=== PATIENT | male | born 1945 | race Hispanic/Latino ===

== ENCOUNTER 2017-08-28 10:43 | Inpatient (IN) | payer OTHER ==
[2017-08-28] VITALS (8 sets, daily range): BP systolic 90–101; BP diastolic 55–59
[~2017-08-28] VITALS: Ht 172.7 cm; Wt 62.3 kg
[2017-08-28 11:16] LABS: BASOPHILS % (AUTO) 0.3 % (0.0-5.0); EOSINOPHILS % (AUTO) 0.1 % (0.0-8.0); HEMATOCRIT 42.5 % (42-54); LYMPHOCYTES % (AUTO) 9.2 % (21.0-51.0); MEAN CORPUSCULAR HEMOGLOBIN 31.9 pg (27.0-33.0); MEAN CORPUSCULAR HGB CONC 33.4 g/dL (32.0-36.0); MEAN CORPUSCULAR VOLUME 95.8 fL (79-99); MONOCYTES % (AUTO) 7.9 % (3.0-13.0); NEUTROPHILS % (AUTO) 82.5 % (40.0-77.0); PLATELET COUNT (AUTO) 496 K/uL (130-400); RED BLOOD CELL COUNT(AUTO) 4.44 MIL/uL (4.50-6.20); RED CELL DISTRIBUTION WIDTH 13.2 % (11.0-15.5); WHITE BLOOD COUNT (AUTO) 17.5 K/uL (4.8-10.8)
[2017-08-28 11:23] LABS: CARBON DIOXIDE 25 mmol/L (21-32); CHLORIDE 101 mmol/L (101-111); CREATININE 1.3 mg/dL (0.5-1.5); GLOMERULAR FILTR. RATE CALC 58 mL/min (>60); GLUCOSE,RANDOM 169 mg/dL (70-105); POTASSIUM 3.7 mmol/L (3.5-5.1); SODIUM SERUM 135 mmol/L (136-145); UREA NITROGEN, BLOOD 17 mg/dL (7-18)
[2017-08-28 11:39] LABS: ALANINE AMINOTRANSFERASE 88 U/L (12-78); ALBUMIN 2.5 g/dL (3.5-5.0); ASPARTATE AMINOTRANSFERASE 51 U/L (10-37); BILIRUBIN,TOTAL 0.9 mg/dL (0.2-1.0); CREATINE KINASE MB < 0.5 ng/mL (0.5-3.6); CREATINE KINASE, TOTAL 40 U/L (21-232)
[2017-08-28] MEDS ORDERED: ENOXAPARIN SODIUM 100 MG/1 ML SQ ONE (14:17)
[2017-08-28] MEDS ORDERED: ASPIRIN 325 MG TABLET ONE (14:18)
[2017-08-28] MEDS ORDERED: NITROGLYCERIN 5 MG/ML 10 ML VIAL IV ONE (14:46)
[2017-08-28] MEDS ORDERED: HEPARIN SODIUM 1000UNIT/ML 10ML VIAL ONE (14:46)
[2017-08-28] MEDS ORDERED: ISOVUE-370 50ML VIAL IV ONE (14:46)
[2017-08-28] MEDS ORDERED: BIVALIRUDIN 250 MG/VIAL IV ONE (14:46)
[2017-08-28] MEDS ORDERED: ATROPINE SULFATE 0.1 MG/ML 10 ML SYG IVP ONE (14:46)
[2017-08-28] MEDS ORDERED: MIDAZOLAM HCL 1 MG/ML 2ML VIAL ONE (14:46)
[2017-08-28] MEDS ORDERED: IOPAMIDOL-370 100 ML VIAL IV ONE (14:46)
[2017-08-28] MEDS ORDERED: LIDOCAINE HCL 2% 20ML ONE (14:47)
[2017-08-28] MEDS ORDERED: DOPAMINE HCL 400 MG/D5%-WATER 0 ML IV ONE (14:47)
[2017-08-28] MEDS ORDERED: FENTANYL CITRATE PF 50 MCG/1 ML 2ML VIAL ONE (15:08)
[2017-08-28] MEDS ORDERED: METOPROLOL TARTRATE 1 MG/ML 5ML VIAL IV ONE (15:10)
[2017-08-28] MEDS ORDERED: CLOPIDOGREL BISULFATE 300 MG TAB ONE (16:07)
[2017-08-28] MEDS ORDERED: KETOROLAC TROMETHAMINE 30MG/ML ONE (16:38)
[2017-08-28] MEDS ORDERED: METOPROLOL TARTRATE 25 MG TAB PO SCH (16:45)
[2017-08-28] MEDS ORDERED: ATOR40TA71 PO (17:53)
[2017-08-28] MEDS ORDERED: ASPI-555 PO (17:53)
[2017-08-28] MEDS ORDERED: MORPHINE SULFATE 2 MG/ML 1ML SYG IVP ONE (18:00)
[2017-08-28] MEDS ORDERED: CEFEPIME 1GM+NS 50ML 50 ML IV SCH (18:15)
[2017-08-28] MEDS: LEVOFLOXACIN 500 MG/D5W 100 ML 100 ML IV SCH (18:53)
[2017-08-28] MEDS: METOPROLOL TARTRATE 25 MG TAB PO SCH (21:00)
[2017-08-28] MEDS: ATORVASTATIN CALCIUM 20 MG TABLET PO SCH (21:57)
[2017-08-28] MEDS: OSELTAMIVIR PHOSPHATE 75 MG CAP PO SCH (21:57)
[2017-08-28] MEDS: CEFEPIME HCL 1 GM VIAL IVP SCH (21:58)
[2017-08-29 03:45] VITALS: BP 103/54
[2017-08-29] MEDS: ACETAMINOPHEN 325 MG TAB PO PRN ×2 (04:03→16:45)
[2017-08-29 04:41] LABS: BASOPHILS % (AUTO) 0.2 % (0.0-5.0); EOSINOPHILS % (AUTO) 0.1 % (0.0-8.0); HEMATOCRIT 35.9 % (42-54); LYMPHOCYTES % (AUTO) 16.1 % (21.0-51.0); MEAN CORPUSCULAR HEMOGLOBIN 32.9 pg (27.0-33.0); MEAN CORPUSCULAR HGB CONC 34.4 g/dL (32.0-36.0); MEAN CORPUSCULAR VOLUME 95.5 fL (79-99); MONOCYTES % (AUTO) 11.7 % (3.0-13.0); NEUTROPHILS % (AUTO) 71.9 % (40.0-77.0); PLATELET COUNT (AUTO) 489 K/uL (130-400); RED BLOOD CELL COUNT(AUTO) 3.76 MIL/uL (4.50-6.20); RED CELL DISTRIBUTION WIDTH 13.5 % (11.0-15.5); WHITE BLOOD COUNT (AUTO) 13.2 K/uL (4.8-10.8)
[2017-08-29] MEDS: CEFEPIME HCL 1 GM VIAL IVP SCH ×3 (04:53→20:32)
[2017-08-29 05:00] LABS: ALANINE AMINOTRANSFERASE 78 U/L (12-78); ASPARTATE AMINOTRANSFERASE 46 U/L (10-37); BILIRUBIN,DIRECT 0.2 mg/dL (0.0-0.3); BILIRUBIN,TOTAL 0.6 mg/dL (0.2-1.0); CARBON DIOXIDE 26 mmol/L (21-32); CHLORIDE 100 mmol/L (101-111); CREATINE KINASE MB < 0.5 ng/mL (0.5-3.6); CREATINE KINASE, TOTAL 25 U/L (21-232); CREATININE 1.1 mg/dL (0.5-1.5); GLOMERULAR FILTR. RATE CALC 70 mL/min (>60); GLUCOSE,RANDOM 108 mg/dL (70-105); MYOGLOBIN 37 ng/mL (10-92); POTASSIUM 3.9 mmol/L (3.5-5.1); SODIUM SERUM 134 mmol/L (136-145); TOTAL PROTEIN, SERUM 6.7 g/dL (6.0-8.3); TROPONIN I 0.35 ng/mL (0.00-0.06); UREA NITROGEN, BLOOD 16 mg/dL (7-18)
[2017-08-29 05:35] LABS: ERYTHROCYTE SEDIMENTATION RATE 85 MM/HR (0-15)
[2017-08-29 05:54] LABS: B-TYPE NATRIURETIC PEPTIDE 152 pg/mL (0-100)
[2017-08-29 07:38] VITALS: BP 88/49
[2017-08-29] MEDS: METOPROLOL TARTRATE 25 MG TAB PO SCH ×2 (08:50→20:40)
[2017-08-29] MEDS: CLOPIDOGREL BISULFATE 75 MG TAB PO SCH (08:50)
[2017-08-29] MEDS: ASPIRIN 81MG TAB.CHEW PO SCH (08:50)
[2017-08-29] MEDS: ENOXAPARIN SODIUM 40 MG/0.4 ML SYRINGE SQ SCH (08:51)
[2017-08-29] MEDS: OSELTAMIVIR PHOSPHATE 75 MG CAP PO SCH ×2 (08:51→20:33)
[2017-08-29 10:59] VITALS: BP 105/60
[2017-08-29 16:00] VITALS: BP 106/67
[2017-08-29] MEDS: LEVOFLOXACIN 500 MG/D5W 100 ML 100 ML IV SCH (18:11)
[2017-08-29 19:27] VITALS: BP 105/58
[2017-08-29] MEDS: COLCHICINE 0.6 MG TABLET PO SCH (20:33)
[2017-08-29] MEDS: ATORVASTATIN CALCIUM 20 MG TABLET PO SCH (20:33)
[2017-08-30 00:16] VITALS: BP 110/57
[2017-08-30] MEDS: ACETAMINOPHEN 325 MG TAB PO PRN ×2 (02:21→19:52)
[2017-08-30 04:00] VITALS: BP 101/62
[2017-08-30] MEDS: CEFEPIME HCL 1 GM VIAL IVP SCH ×3 (04:23→19:50)
[2017-08-30 04:35] LABS: HEMATOCRIT 36.2 % (42-54); MEAN CORPUSCULAR HEMOGLOBIN 32.6 pg (27.0-33.0); MEAN CORPUSCULAR HGB CONC 34.2 g/dL (32.0-36.0); MEAN CORPUSCULAR VOLUME 95.3 fL (79-99); PLATELET COUNT (AUTO) 558 K/uL (130-400); RED BLOOD CELL COUNT(AUTO) 3.79 MIL/uL (4.50-6.20); RED CELL DISTRIBUTION WIDTH 13.1 % (11.0-15.5); WHITE BLOOD COUNT (AUTO) 15.1 K/uL (4.8-10.8)
[2017-08-30 04:52] LABS: CREATININE 1.2 mg/dL (0.5-1.5); POTASSIUM 3.5 mmol/L (3.5-5.1)
[2017-08-30 04:58] LABS: BAND NEUTROPHILS % (MANUAL) 4 % (0-2); BASOPHILS % (MANUAL) 1 % (0-2); LYMPHOCYTES % (MANUAL) 10 % (22-44); MAN.DIFF COMMENT-IMPRESSION MANUAL DIFFERENTIAL; MONOCYTES % (MANUAL) 10 % (2-9); PLATELET MORPHOLOGY COMMENT INCREASED; SEGMENTED NEUTROPHILS % 75 % (40-70)
[2017-08-30 07:33] VITALS: BP 102/61
[2017-08-30] MEDS: OSELTAMIVIR PHOSPHATE 75 MG CAP PO SCH ×2 (09:28→19:50)
[2017-08-30] MEDS: ASPIRIN 81MG TAB.CHEW PO SCH (09:28)
[2017-08-30] MEDS: METOPROLOL TARTRATE 25 MG TAB PO SCH ×2 (09:28→19:51)
[2017-08-30] MEDS: COLCHICINE 0.6 MG TABLET PO SCH ×2 (09:28→19:50)
[2017-08-30] MEDS: CLOPIDOGREL BISULFATE 75 MG TAB PO SCH (09:28)
[2017-08-30] MEDS: TRAMADOL HCL 50 MG TABLET PO SCH (09:29)
[2017-08-30] MEDS: PANTOPRAZOLE SODIUM 40 MG TABLET.DR PO SCH (09:29)
[2017-08-30] MEDS: ENOXAPARIN SODIUM 40 MG/0.4 ML SYRINGE SQ SCH (09:30)
[2017-08-30 11:04] VITALS: BP 105/64
[2017-08-30 16:04] VITALS: BP 109/65
[2017-08-30] MEDS: LEVOFLOXACIN 500 MG/D5W 100 ML 100 ML IV SCH (18:31)
[2017-08-30 19:40] VITALS: BP 118/50
[2017-08-30] MEDS: ATORVASTATIN CALCIUM 20 MG TABLET PO SCH (19:50)
[2017-08-31] VITALS (7 sets, daily range): BP systolic 95–120; BP diastolic 53–69
[2017-08-31] MEDS: CEFEPIME HCL 1 GM VIAL IVP SCH ×3 (04:14→20:22)
[2017-08-31 04:31] LABS: HEMATOCRIT 37.4 % (42-54); MEAN CORPUSCULAR HEMOGLOBIN 33.4 pg (27.0-33.0); MEAN CORPUSCULAR HGB CONC 35.1 g/dL (32.0-36.0); MEAN CORPUSCULAR VOLUME 95.1 fL (79-99); PLATELET COUNT (AUTO) 532 K/uL (130-400); RED BLOOD CELL COUNT(AUTO) 3.93 MIL/uL (4.50-6.20); RED CELL DISTRIBUTION WIDTH 13.1 % (11.0-15.5); WHITE BLOOD COUNT (AUTO) 14.4 K/uL (4.8-10.8)
[2017-08-31 04:48] LABS: BILIRUBIN,TOTAL 0.5 mg/dL (0.2-1.0); CREATININE 1.2 mg/dL (0.5-1.5); MAGNESIUM 2.2 mg/dL (1.80-2.40); POTASSIUM 4.2 mmol/L (3.5-5.1); TOTAL PROTEIN, SERUM 7.1 g/dL (6.0-8.3)
[2017-08-31] MEDS: TRAMADOL HCL 50 MG TABLET PO SCH (08:00)
[2017-08-31] MEDS: ASPIRIN 81MG TAB.CHEW PO SCH (10:14)
[2017-08-31] MEDS: CLOPIDOGREL BISULFATE 75 MG TAB PO SCH (10:14)
[2017-08-31] MEDS: OSELTAMIVIR PHOSPHATE 75 MG CAP PO SCH ×2 (10:14→20:20)
[2017-08-31] MEDS: COLCHICINE 0.6 MG TABLET PO SCH ×2 (10:15→20:20)
[2017-08-31] MEDS: PANTOPRAZOLE SODIUM 40 MG TABLET.DR PO SCH (10:16)
[2017-08-31] MEDS: METOPROLOL TARTRATE 25 MG TAB PO SCH ×2 (10:16→20:20)
[2017-08-31] MEDS: ENOXAPARIN SODIUM 40 MG/0.4 ML SYRINGE SQ SCH (10:18)
[2017-08-31] MEDS: ACETAMINOPHEN 325 MG TAB PO PRN (10:28)
[2017-08-31] MEDS ORDERED: TRAMADOL HCL 50 MG TABLET PO PRN (17:30)
[2017-08-31] MEDS: LEVOFLOXACIN 500 MG/D5W 100 ML 100 ML IV SCH (19:21)
[2017-08-31] MEDS: ATORVASTATIN CALCIUM 40 MG TABLET PO SCH (20:20)
[2017-09-01] MEDS: CEFEPIME HCL 1 GM VIAL IVP SCH ×3 (03:06→19:50)
[2017-09-01 03:53] VITALS: BP 115/65
[2017-09-01 07:00] VITALS: BP 104/61
[2017-09-01] MEDS: COLCHICINE 0.6 MG TABLET PO SCH ×2 (08:33→19:50)
[2017-09-01] MEDS: CLOPIDOGREL BISULFATE 75 MG TAB PO SCH (08:34)
[2017-09-01] MEDS: ASPIRIN 81MG TAB.CHEW PO SCH (08:34)
[2017-09-01] MEDS: PANTOPRAZOLE SODIUM 40 MG TABLET.DR PO SCH (08:34)
[2017-09-01] MEDS: METOPROLOL TARTRATE 25 MG TAB PO SCH ×2 (08:34→19:52)
[2017-09-01] MEDS: OSELTAMIVIR PHOSPHATE 75 MG CAP PO SCH ×2 (08:34→19:52)
[2017-09-01] MEDS: ENOXAPARIN SODIUM 40 MG/0.4 ML SYRINGE SQ SCH (08:37)
[2017-09-01] MEDS ORDERED: GADOBENATE DIMEGLUMINE 20 ML IV ONE (10:59)
[2017-09-01 11:00] VITALS: BP 111/67
[2017-09-01] MEDS: NICOTINE 14 MG/ 24 HR PATCH TD SCH (12:00)
[2017-09-01] MEDS: FOLIC ACID 1 MG TABLET PO SCH (12:27)
[2017-09-01] MEDS: THIAMINE HCL 100 MG TABLET PO SCH (12:27)
[2017-09-01 16:00] VITALS: BP 102/63
[2017-09-01] MEDS: LEVOFLOXACIN 500 MG/D5W 100 ML 100 ML IV SCH (18:40)
[2017-09-01 19:30] VITALS: BP 108/63
[2017-09-01] MEDS: ATORVASTATIN CALCIUM 40 MG TABLET PO SCH (19:52)
[2017-09-01] MEDS ORDERED: ALPRAZOLAM 0.5 MG TABLET PO SCH (21:00)
[2017-09-01 23:39] VITALS: BP 106/67
[2017-09-02] MEDS: CEFEPIME HCL 1 GM VIAL IVP SCH ×2 (03:13→13:14)
[2017-09-02 03:37] VITALS: BP 98/60
[2017-09-02 05:00] LABS: HEMATOCRIT 37.5 % (42-54); MEAN CORPUSCULAR HEMOGLOBIN 32.2 pg (27.0-33.0); MEAN CORPUSCULAR HGB CONC 33.8 g/dL (32.0-36.0); MEAN CORPUSCULAR VOLUME 95.2 fL (79-99); PLATELET COUNT (AUTO) 570 K/uL (130-400); RED BLOOD CELL COUNT(AUTO) 3.94 MIL/uL (4.50-6.20); RED CELL DISTRIBUTION WIDTH 13.2 % (11.0-15.5); WHITE BLOOD COUNT (AUTO) 12.9 K/uL (4.8-10.8)
[2017-09-02 05:11] LABS: CREATININE 1.2 mg/dL (0.5-1.5); MAGNESIUM 2.1 mg/dL (1.80-2.40); POTASSIUM 3.6 mmol/L (3.5-5.1)
[2017-09-02 07:00] VITALS: BP 105/63
[2017-09-02] MEDS ORDERED: COLC0.6C3 PO (08:45)
[2017-09-02] MEDS ORDERED: ATOR40TA69 PO (08:45)
[2017-09-02] MEDS ORDERED: METO25TA6 PO (08:45)
[2017-09-02] MEDS ORDERED: CLOP75TA14 PO (08:45)
[2017-09-02] MEDS ORDERED: OSEL75 PO (08:45)
[2017-09-02] MEDS ORDERED: AEC81 PO (08:45)
[2017-09-02] MEDS: COLCHICINE 0.6 MG TABLET PO SCH (08:55)
[2017-09-02] MEDS: CLOPIDOGREL BISULFATE 75 MG TAB PO SCH (08:56)
[2017-09-02] MEDS: ASPIRIN 81MG TAB.CHEW PO SCH (08:56)
[2017-09-02] MEDS: PANTOPRAZOLE SODIUM 40 MG TABLET.DR PO SCH (08:56)
[2017-09-02] MEDS: THIAMINE HCL 100 MG TABLET PO SCH (08:56)
[2017-09-02] MEDS: FOLIC ACID 1 MG TABLET PO SCH (08:56)
[2017-09-02] MEDS: METOPROLOL TARTRATE 25 MG TAB PO SCH (08:56)
[2017-09-02] MEDS: OSELTAMIVIR PHOSPHATE 75 MG CAP PO SCH (08:56)
[2017-09-02] MEDS: NICOTINE 14 MG/ 24 HR PATCH TD SCH (08:57)
[2017-09-02] MEDS: ENOXAPARIN SODIUM 40 MG/0.4 ML SYRINGE SQ SCH (09:02)
[2017-09-02 11:00] VITALS: BP 102/64
== END 2017-09-02 15:30 | disposition home or self-care (01) | DRG 853 ==
LOC: EDH 10:43 → OBSVTOIN 13:59 → EDHIP 13:59 → 2DH 17:12
PROVIDERS: ADMIT Internal Medicine Infectious Disease; ATTEND Internal Medicine Infectious Disease
PROC: 4A023N7 Measurement of Cardiac Sampling and Pressure, Left Heart, Percutaneous Approach (ICD-10-PCS; principal; 2017-08-28)
PROC: B2111ZZ Fluoroscopy of Multiple Coronary Arteries using Low Osmolar Contrast (ICD-10-PCS; 2017-08-28)
PROC: B2151ZZ Fluoroscopy of Left Heart using Low Osmolar Contrast (ICD-10-PCS; 2017-08-28)
PROC: 027034Z Dilation of Coronary Artery, One Artery with Drug-eluting Intraluminal Device, Percutaneous Approach (ICD-10-PCS; 2017-08-28)
DX: A41.9 Sepsis, unspecified organism (principal); I21.09 ST elevation (STEMI) myocardial infarction involving other coronary artery of anterior wall; I50.21 Acute systolic (congestive) heart failure; I95.9 Hypotension, unspecified; I11.0 Hypertensive heart disease with heart failure; J11.1 Influenza due to unidentified influenza virus with other respiratory manifestations; M25.512 Pain in left shoulder; E78.5 Hyperlipidemia, unspecified; I25.10 Atherosclerotic heart disease of native coronary artery without angina pectoris; F17.200 Nicotine dependence, unspecified, uncomplicated; M75.102 Unspecified rotator cuff tear or rupture of left shoulder, not specified as traumatic; Z28.21 Immunization not carried out because of patient refusal; Z82.49 Family history of ischemic heart disease and other diseases of the circulatory system
CPT/HCPCS: 36415; 71046; 71250; 73223; 80048; 80053; 80076; 82550; 82553; 83735; 83874; 83880; 84484; 85025; 85027; 85651; 87040; 87804; 93005; 93306; 93458; 99152; 99153; A4218; A9577; C1725; C1760; C1769; C1887; C1894; C9600; J0461; J0583; J0692; J1265; J1644; J1650; J1885; J1956; J2250; J3010; J3490; Q9967

== ENCOUNTER 2021-10-18 08:52 | Observation (INO) | payer OTHER ==
[~2021-10-18] VITALS: Ht 172.7 cm; Wt 70.3 kg
[2021-10-18] VITALS (12 sets, daily range): BP systolic 104–134; BP diastolic 53–79
[~2021-10-18 08:52] MED LIST: ACET325C6 PO; AEC81 PO; ATOR20TA65 PO; CLOP75TA32 PO; METO25TA6 PO; SACU1TAB PO
[2021-10-18 09:36] LABS: BASOPHILS % (AUTO) 0.3 % (0.0-5.0); EOSINOPHILS % (AUTO) 3.7 % (0.0-8.0); HEMATOCRIT 35.4 % (42-54); LYMPHOCYTES % (AUTO) 28.6 % (21.0-51.0); MEAN CORPUSCULAR HEMOGLOBIN 29.9 pg (27.0-33.0); MEAN CORPUSCULAR HGB CONC 32.5 g/dL (32.0-36.0); MEAN CORPUSCULAR VOLUME 91.9 fL (79-99); MONOCYTES % (AUTO) 13.3 % (3.0-13.0); NEUTROPHILS % (AUTO) 53.8 % (40.0-77.0); PLATELET COUNT (AUTO) 191 K/uL (130-400); RED BLOOD CELL COUNT(AUTO) 3.85 MIL/uL (4.50-6.20); RED CELL DISTRIBUTION WIDTH 14.4 % (11.0-15.5); WHITE BLOOD COUNT (AUTO) 7.5 K/uL (4.8-10.8)
[2021-10-18 09:44] LABS: POTASSIUM 3.8 mmol/L (3.5-5.1)
[2021-10-18 09:46] LABS: INR 0.95 (0.85-1.15); PROTHROMBIN TIME 10.4 SEC (9.6-11.6)
[2021-10-18 09:47] LABS: PARTIAL THROMBOPLASTIN TIME 28.4 SEC (26.3-35.5)
[2021-10-18] MEDS ORDERED: ACETAMINOPHEN 325 MG TAB PO PRN ×2 (12:30→15:00)
[2021-10-18] MEDS ORDERED: FURO40TA5 PO (18:34)
[2021-10-18] MEDS ORDERED: RIVA20TA PO (18:34)
[2021-10-18] MEDS ORDERED: ROSU10TA28 PO (18:34)
[2021-10-18] MEDS ORDERED: ICOS1CAP PO (18:34)
[2021-10-18] MEDS ORDERED: CAND8TAB14 PO (18:34)
[2021-10-18] MEDS: METOPROLOL TARTRATE 25 MG TAB PO SCH (20:39)
[2021-10-18] MEDS: Icosapent Ethyl (Vascepa) 2 GM PO SCH (21:00)
[2021-10-19 03:16] VITALS: BP 116/60
[2021-10-19 05:24] LABS: BASOPHILS % (AUTO) 0.4 % (0.0-5.0); EOSINOPHILS % (AUTO) 3.9 % (0.0-8.0); HEMATOCRIT 32.4 % (42-54); LYMPHOCYTES % (AUTO) 36.8 % (21.0-51.0); MEAN CORPUSCULAR HEMOGLOBIN 30.3 pg (27.0-33.0); MEAN CORPUSCULAR HGB CONC 32.4 g/dL (32.0-36.0); MEAN CORPUSCULAR VOLUME 93.4 fL (79-99); MONOCYTES % (AUTO) 15.8 % (3.0-13.0); NEUTROPHILS % (AUTO) 42.8 % (40.0-77.0); PLATELET COUNT (AUTO) 182 K/uL (130-400); RED BLOOD CELL COUNT(AUTO) 3.47 MIL/uL (4.50-6.20); RED CELL DISTRIBUTION WIDTH 14.4 % (11.0-15.5); WHITE BLOOD COUNT (AUTO) 7.4 K/uL (4.8-10.8)
[2021-10-19 05:34] LABS: CREATININE 1.8 mg/dL (0.5-1.5); POTASSIUM 3.8 mmol/L (3.5-5.1)
[2021-10-19] MEDS: METOPROLOL TARTRATE 25 MG TAB PO SCH (05:55)
[2021-10-19 08:01] VITALS: BP 117/65
[2021-10-19] MEDS ORDERED: CANDESARTAN CILEXETIL 8 MG PO SCH (09:00)
[2021-10-19] MEDS ORDERED: Rosuvastatin Calcium 10 MG PO SCH (09:00)
[2021-10-19] MEDS: Icosapent Ethyl (Vascepa) 2 GM PO SCH (09:00)
[2021-10-19] MEDS ORDERED: FUROSEMIDE 40 MG TABLET PO SCH (09:00)
[2021-10-19 14:07] VITALS: BP 138/58
== END 2021-10-19 18:00 | disposition home or self-care (01) ==
LOC: DAH 08:52 → 3DH 08:53 → DAH 08:53 → EDSTATUS 10:00
PROVIDERS: ADMIT Internal Medicine Nephrology; ATTEND Internal Medicine Nephrology
DX: R80.9 Proteinuria, unspecified (principal); I12.9 Hypertensive chronic kidney disease with stage 1 through stage 4 chronic kidney disease, or unspecified chronic kidney disease; N18.9 Chronic kidney disease, unspecified; E78.5 Hyperlipidemia, unspecified; I25.5 Ischemic cardiomyopathy; K21.9 Gastro-esophageal reflux disease without esophagitis; I25.10 Atherosclerotic heart disease of native coronary artery without angina pectoris; M19.90 Unspecified osteoarthritis, unspecified site; Z95.5 Presence of coronary angioplasty implant and graft; Z79.01 Long term (current) use of anticoagulants; Z79.899 Other long term (current) drug therapy
CPT/HCPCS: 36415 ×2; 50200; 76942; 80048 ×2; 85025 ×2; 85610; 85730; G0378 ×33; G0379

== ENCOUNTER 2022-04-18 08:18 | Observation (INO) | payer OTHER ==
[~2022-04-18] VITALS: Ht 170.2 cm; Wt 72.1 kg
[~2022-04-18 08:18] MED LIST changes: -ACET325C6 PO; -ATOR20TA65 PO; +CAND8TAB14 PO; -CLOP75TA32 PO; +FURO40TA5 PO; +ICOS1CAP PO; +RIVA20TA PO; +ROSU10TA28 PO; -SACU1TAB PO
[2022-04-18 08:49] LABS: BASOPHILS % (AUTO) 0.2 % (0.0-5.0); EOSINOPHILS % (AUTO) 1.8 % (0.0-8.0); HEMATOCRIT 37.5 % (42-54); MEAN CORPUSCULAR HGB CONC 33.9 g/dL (32.0-36.0); MEAN CORPUSCULAR VOLUME 91.5 fL (79-99); NEUTROPHILS % (AUTO) 69.3 % (40.0-77.0); PLATELET COUNT (AUTO) 180 K/uL (130-400); RED CELL DISTRIBUTION WIDTH 15.1 % (11.0-15.5); WHITE BLOOD COUNT (AUTO) 11.4 K/uL (4.8-10.8)
[2022-04-18 08:58] LABS: CREATININE 1.8 mg/dL (0.5-1.5); POTASSIUM 3.6 mmol/L (3.5-5.1)
[2022-04-18 08:59] LABS: INR 0.93 (0.85-1.15); PROTHROMBIN TIME 10.2 SEC (9.6-11.6)
[2022-04-18] MEDS ORDERED: 0.9%NACL 1000ML 1,000 ML IV ONE (09:00)
[2022-04-18 09:01] LABS: PARTIAL THROMBOPLASTIN TIME 25.6 SEC (26.3-35.5)
[2022-04-18 09:02] LABS: ALBUMIN 1.8 g/dL (3.5-5.0)
[2022-04-18] MEDS ORDERED: IOHEXOL 350 MG/ML 100ML INFUS..BTL IV ONE (09:25)
[2022-04-18] MEDS ORDERED: ASPIRIN 81MG CHEW TAB PO ONE (10:30)
[2022-04-18] MEDS ORDERED: 0.9%NACL 1000ML 1,000 ML IV SCH ×2 (11:00→16:30)
[2022-04-18] MEDS ORDERED: ASPIRIN 325MG TAB PO SCH (11:00)
[2022-04-18] MEDS ORDERED: FAMO20TA8 PO (11:05)
[2022-04-18] MEDS ORDERED: FERR-72 PO (11:05)
[2022-04-18] MEDS ORDERED: LEVO25CA4 PO (11:05)
[2022-04-18] MEDS ORDERED: RIVA20TA PO (11:05)
[2022-04-18] MEDS ORDERED: CAND16TA28 PO (11:05)
[2022-04-18] MEDS ORDERED: METO25TA6 PO (11:05)
[2022-04-18] MEDS ORDERED: ROSU10TA28 PO (11:05)
[2022-04-18] MEDS ORDERED: PRED20TA3 PO (11:05)
[2022-04-18] MEDS ORDERED: TAMS-1 PO (11:05)
[2022-04-18] MEDS ORDERED: FURO40TA5 PO (11:05)
[2022-04-18] MEDS ORDERED: CAND8TAB14 PO (11:13)
[2022-04-18 16:00] VITALS: BP_SYST 121; BP_SYST 132; BP_DIAS 62; BP_DIAS 74
[2022-04-18] MEDS ORDERED: LACTULOSE 20 GM/30 ML UDCUP PO PRN (16:30)
[2022-04-18] MEDS ORDERED: ACETAMINOPHEN 325 MG TAB PO PRN ×2 (16:30)
[2022-04-18] MEDS ORDERED: ONDANSETRON 4MG INJ IV PRN (16:30)
[2022-04-18] MEDS ORDERED: DiphenhydrAMINE HCL 50 MG/ML VIAL IV PRN (16:30)
[2022-04-18] MEDS ORDERED: MAG/ALUM/SIMETH 30 ML UDCUP PO PRN (16:30)
[2022-04-18] MEDS ORDERED: POTASSIUM CHLORIDE 20MEQ/100ML 100 ML IV PRN (17:00)
[2022-04-18] MEDS ORDERED: KCL 20 MEQ ERTAB PO PRN (17:00)
[2022-04-18] MEDS ORDERED: POTASSIUM CHLORIDE 10% ELIXIR 20 MEQ/15 ML UDCUP PO PRN (17:00)
[2022-04-18] MEDS ORDERED: LIDOCAINE HCL-MPF 1% 2ML VIAL IV PRN (17:00)
[2022-04-18] MEDS ORDERED: DIPHENHYDRAMINE HCL 25 MG CAPSULE PO PRN (17:30)
[2022-04-18 20:20] VITALS: BP 122/66
[2022-04-18] MEDS: FISH OIL 1000 MG/CAP PO SCH (20:35)
[2022-04-18] MEDS: METOPROLOL TARTRATE 25 MG TAB PO SCH (20:35)
[2022-04-18] MEDS ORDERED: ATORVASTATIN 20 MG TABLET PO SCH (21:00)
[2022-04-18] MEDS ORDERED: NON-FORMULARY MEDICATION 1 EACH (Rosuvastatin Calcium 10 MG) PO SCH (21:00)
[2022-04-18 23:44] VITALS: BP 115/64
[2022-04-19 04:10] VITALS: BP 108/55
[2022-04-19 05:29] LABS: CREATININE 1.6 mg/dL (0.5-1.5)
[2022-04-19] MEDS ORDERED: LEVOTHYROXINE 25 MCG TABLET PO SCH (06:30)
[2022-04-19 07:49] VITALS: BP 106/53
[2022-04-19] MEDS ORDERED: TAMSULOSIN HCL 0.4 MG CAP.ER.24H PO SCH (09:00)
[2022-04-19] MEDS ORDERED: FUROSEMIDE 40 MG TABLET PO SCH (09:00)
[2022-04-19] MEDS ORDERED: FAMOTIDINE 20MG TAB PO SCH (09:00)
[2022-04-19] MEDS ORDERED: ASPIRIN 81 MG EC TAB PO SCH (09:00)
[2022-04-19] MEDS ORDERED: NON-FORMULARY MEDICATION 1 EACH (Ferrous Sulfate 325 MG) PO SCH (09:00)
[2022-04-19] MEDS ORDERED: FERROUS SULFATE 325 MG TABLET.DR PO SCH (09:00)
[2022-04-19] MEDS ORDERED: CANDESARTAN CILEXETIL 8 MG PO SCH (09:00)
[2022-04-19] MEDS ORDERED: RIVAROXABAN 20 MG TABLET PO SCH (09:00)
[2022-04-19] MEDS ORDERED: NON-FORMULARY MEDICATION 1 EACH (Levothyroxine Sodium (Levothyroxine) 25 MCG) PO SCH (09:00)
[2022-04-19] MEDS: FISH OIL 1000 MG/CAP PO SCH (09:29)
[2022-04-19] MEDS: METOPROLOL TARTRATE 25 MG TAB PO SCH (09:30)
[2022-04-19 12:18] VITALS: BP 121/69
[2022-04-19] MEDS ORDERED: CAND8TAB14 PO (13:57)
[2022-04-19 15:10] VITALS: BP 107/53
== END 2022-04-19 16:40 | disposition home or self-care (01) ==
LOC: EDH 08:18 → INTOOBSV 10:53 → EDHIP 10:53 → 3AH 12:01
PROVIDERS: ADMIT Internal Medicine; ATTEND Internal Medicine
DX: G45.9 Transient cerebral ischemic attack, unspecified (principal); I63.9 Cerebral infarction, unspecified; I13.0 Hypertensive heart and chronic kidney disease with heart failure and stage 1 through stage 4 chronic kidney disease, or unspecified chronic kidney disease; E11.22 Type 2 diabetes mellitus with diabetic chronic kidney disease; I50.9 Heart failure, unspecified; N18.4 Chronic kidney disease, stage 4 (severe); I25.10 Atherosclerotic heart disease of native coronary artery without angina pectoris; I71.6 Thoracoabdominal aortic aneurysm, without rupture; I70.0 Atherosclerosis of aorta; I48.91 Unspecified atrial fibrillation; I42.9 Cardiomyopathy, unspecified; F10.21 Alcohol dependence, in remission; D68.69 Other thrombophilia; I95.9 Hypotension, unspecified; E86.0 Dehydration; M41.9 Scoliosis, unspecified; N05.2 Unspecified nephritic syndrome with diffuse membranous glomerulonephritis; R29.701 NIHSS score 1; Z79.82 Long term (current) use of aspirin; Z79.890 Hormone replacement therapy; Z79.01 Long term (current) use of anticoagulants; Z79.899 Other long term (current) drug therapy; Z87.891 Personal history of nicotine dependence; Z86.73 Personal history of transient ischemic attack (TIA), and cerebral infarction without residual deficits; Z95.5 Presence of coronary angioplasty implant and graft
CPT/HCPCS: 96360; 96361 ×2; 84484; 80053; 85025; 85610; 85730; 82948; 36415 ×2; 71045; 70450; 70496; 70498; 93880; 99291; 97161; 97116 ×2; 92522; 92610; 93005; 80048; 93306; 97039; 92507; Q9967; G0378 ×3

== ENCOUNTER 2023-05-01 23:07 | Emergency (ER) | payer OTHER ==
[~2023-05-01] VITALS: Ht 165.1 cm; Wt 74.8 kg
[~2023-05-01 23:07] MED LIST changes: +FAMO20TA8 PO; +FERR-72 PO; +TAMS-1 PO
[2023-05-01] MEDS ORDERED: ONDANSETRON 4MG INJ ONE (23:29)
[2023-05-01 23:39] LABS: BASOPHILS # (AUTO) 0.03 K/uL (0.00-0.20); BASOPHILS % (AUTO) 0.2 % (0.0-5.0); EOSINOPHILS # (AUTO) 0.18 K/uL (0.00-0.70); EOSINOPHILS % (AUTO) 1.3 % (0.0-8.0); HEMATOCRIT 41.1 % (42-54); IMMATURE GRANULOCYTE ABSOLUTE 0.05 K/uL (0-1); LYMPHOCYTES # (AUTO) 5.7 K/uL (1.0-4.8); LYMPHOCYTES % (AUTO) 41.9 % (21.0-51.0); MEAN CORPUSCULAR HEMOGLOBIN 28.7 pg (27.0-33.0); MEAN CORPUSCULAR HGB CONC 32.8 g/dL (32.0-36.0); MEAN CORPUSCULAR VOLUME 87.3 fL (79-99); MONOCYTES # (AUTO) 1.3 K/uL (0.1-1.0); MONOCYTES % (AUTO) 9.2 % (3.0-13.0); NEUTROPHILS # (AUTO) 6.4 K/uL (1.8-7.7); PLATELET COUNT (AUTO) 266 K/uL (130-400); RED BLOOD CELL COUNT(AUTO) 4.71 MIL/uL (4.50-6.20); RED CELL DISTRIBUTION WIDTH 15.1 % (11.0-15.5); WHITE BLOOD COUNT (AUTO) 13.7 K/uL (4.8-10.8)
[2023-05-01 23:49] LABS: CREATININE 1.6 mg/dL (0.5-1.5); POTASSIUM 3.3 mmol/L (3.5-5.1)
[2023-05-01 23:51] LABS: INR 0.96 (0.85-1.15); PROTHROMBIN TIME 11.2 SEC (9.6-11.6)
[2023-05-01 23:52] LABS: PARTIAL THROMBOPLASTIN TIME 29.6 SEC (26.3-35.5)
[2023-05-01 23:55] LABS: ALBUMIN 3.4 g/dL (3.5-5.0); BILIRUBIN,TOTAL 0.3 mg/dL (0.2-1.0); MAGNESIUM 2.2 mg/dL (1.80-2.40); TOTAL PROTEIN, SERUM 7.2 g/dL (6.0-8.3)
[2023-05-02 00:09] LABS: B-TYPE NATRIURETIC PEPTIDE 100 pg/mL (0-100)
[2023-05-02 00:45] LABS: BAND NEUTROPHILS % (MANUAL) 3 % (0-2); EOSINOPHILS % (MANUAL) 2 % (1-6); LYMPHOCYTES % (MANUAL) 31 % (22-44); MAN.DIFF COMMENT-IMPRESSION MANUAL DIFFERENTIAL; MONOCYTES % (MANUAL) 14 % (2-9); PLATELET MORPHOLOGY COMMENT ADEQUATE; SEGMENTED NEUTROPHILS % 50 % (40-70); TOTAL CELLS COUNTED 100; WBC MORPHOLOGY CONSISTENT W/DIFF
[2023-05-02] MEDS ORDERED: ONDA-104 PO ×2 (03:19)
[2023-05-02 03:35] VITALS: BP 145/74; PULSE 88; RESP 18; O2SAT 99
== END 2023-05-02 03:42 | disposition home or self-care (01) ==
LOC: EDH 23:07
DX: I63.9 Cerebral infarction, unspecified (principal); I10 Essential (primary) hypertension; Z88.6 Allergy status to analgesic agent
CPT/HCPCS: 99284; 96374; 71045; 83735; 84484 ×2; 80053; 83880; 85025; 85610; 85730; 36415; 93005; 70450; J2405

== ENCOUNTER → 2024-06-02 | Outpatient (CLI) | payer OTHER ==
[~2024-06-02] MED LIST changes: +ONDA-104 PO; -ROSU10TA28 PO; +ROSU10TA72 PO
== END | disposition home or self-care (01) ==
LOC: RAH 16:19
PROVIDERS: ATTEND Internal Medicine
DX: M79.604 Pain in right leg (principal); R60.0 Localized edema
CPT/HCPCS: 73590

== ENCOUNTER 2024-06-14 14:25 | Emergency (ER) | payer OTHER ==
[~2024-06-14] VITALS: Ht 167.6 cm; Wt 76.2 kg
--- NOTE | 2024-06-14 14:56 | ERN ---
ED Note History of Present Illness Stated Complaint: FALL Chief Complaint: Lower Extremity Pain/Injury Time Seen by MD: : Dictation: 78-year-old male presents to the ED for evaluation of low right lower extremity pain onset [employer]. Patient states he had injured his right leg around the tib-fib area 2 weeks ago, he was prescribed medication he felt better but states that he went back to work and hit his right lower extremity again. Allergies: Coded Allergies: ibuprofen (Verified Allergy, Unknown, 02/16/18) naproxen (Verified Allergy, Unknown, 02/16/18) Home Meds Active Scripts Ondansetron HCl (Ondansetron HCl) 4 Mg Tablet, 4 MG PO TIDP PRN for VOMITING, #20 TAB Prov:MARIA ISABEL FLEMING MD 05/02/23 Ondansetron HCl (Ondansetron HCl) 4 Mg Tablet, 4 MG PO TIDP PRN for VOMITING, #20 TAB Prov:MARIA ISABEL FLEMING MD 05/02/23 Candesartan Cilexetil (Candesartan Cilexetil) 8 Mg Tablet, 4 MG PO DAILY, #90 TAB Prov:MARIA ISABEL FERNANDEZ MD 04/19/22 Aspirin (ASPIRIN 81 MG ECTAB) 81 Mg Ectab, 81 MG PO DAILY for 30 Days, TAB.EC Prov:FLACA LO MD 09/02/17 Reported Medications Metoprolol Tartrate (Metoprolol Tartrate) 25 Mg Tablet, 25 MG PO BID, TAB 04/18/22 Rosuvastatin Calcium (Rosuvastatin Calcium) 10 Mg Tablet, 10 MG PO HS, TAB 04/18/22 Famotidine (Famotidine) 20 Mg Tablet, 20 MG PO DAILY, TAB 04/18/22 Rivaroxaban (Xarelto) 20 Mg Tablet, 20 MG PO DAILY, TAB 04/18/22 Tamsulosin HCl (Flomax) 0.4 Mg Cap.er.24h, 0.4 MG PO DAILY, CAPSULE.DR 04/18/22 Ferrous Sulfate (Ferrous Sulfate) 325 Mg Tablet, 325 MG PO DAILY, TAB 04/18/22 Furosemide (Furosemide) 40 Mg Tablet, 20 MG PO DAILY, TAB 04/18/22 Icosapent Ethyl (Vascepa) 1 Gm Capsule, 2 GM PO BID, CAP 10/18/21 Past Medical History Past Medical History: High Cholesterol, Heart Disease Surgical History: Other Surgical History Other: CARDIAC STENT AND CATARACT SURGERY Family History: DM, HTN Social History: Negative, Lives with family, Other Review of System Dictation Constitutional: Negative for fever,chills, and weight loss Eyes: Negative for injury, pain,redness, and discharge ENT: Negative for injury,pain or swelling Cardiovascular: Negative for chest pain, palpitations, and edema Respiratory: Negative for shortness of breath, cough, and wheezing, Abdomen/GI: Negative for abdominal pain, nausea, vomiting, diarrhea, and constipation Back: Negative for injury and pain : Negative for injury, bleeding and discharge MS/Extremity: Right lower extremity injury, pain negative for deformity Skin: Negative for rash, and discoloration Neuro: Negative for headache, weakness, numbness, tingling, and seizure Psych: Negative for suicide ideation, homicidal ideation, and hallucinations Initial Vital Sign VS Vital Signs Date Time Temp Pulse Resp B/P (MAP) Pulse Ox O2 Delivery O2 Flow Rate FiO2 06/14/24 14:28 98.6 85 20 105/58 98 0 Physical Exam Dictation General: awake, alert, NAD Head/Face: Normocephalic, atraumatic Eyes: PERRL, EOMI, vision at baseline ENT: oral cavity clear, TMs clear, no signs of infection Neck: Trachea midline, supple, no nuchal rigidity Cardiovascular: RRR, normal S1/S2, No MRGs, no JVD Respiratory: CTAB, no respiratory distress, No rales or wheezes Abdomen: Soft, non-tender, non-distended, normal bowel sounds, no guarding or rebound. Skin: Warm, dry, normal turgor, no rash MS/Extremity: Pulses equal, no cyanosis, neurovascular intact, FROM, right tib- fib area swelling, erythema Neuro: COAx4, GCS 15, strength 5/5, CN 2-12 intact, normal cerebellar exam, norm al gait, Psych: Normal behavior, mood, and affect normal ED Course ED Course Orders Procedure Category Date Status Time Tibia/Fibula 2vws Rt RAD 06/14/24 Resulted 14:51 Vital Signs Date Time Temp Pulse Resp B/P (MAP) Pulse Ox O2 Delivery O2 Flow Rate FiO2 06/14/24 14:28 98.6 85 20 105/58 98 0 Medical Decision Making MDM MDM: Differential diagnosis: Lower extremity pain, injury, contusion Previous outside records reviewed: Old ER visits. Need for hospitalization: Patient does not meet criteria for hospitalization. Need for emergency major/minor surgery: No Patient's prior external medical records from other ER visits were reviewed by me as indicated. Prior testing and results from previous visits were reviewed. Prior tests were taken into account with medical decision making and resource utilization, independent historian/historians were used to obtain complete medical history. I independently interpreted the test that were performed, results were reviewed by me and considered findings on radiology if ordered. Medical management and examination interpretation discussions were had by me with other qualified healthcare professionals as indicated for the patient's care. X-ray negative localized swelling hematoma with mild erythematous component we will place on antibiotics and follow up as indicated. DX & DISP Disposition: Discharge Departure Impression: Primary Impression: Contusion of right lower leg Condition: Stable Scripts Clindamycin HCl (Clindamycin HCl) 300 Mg Capsule 1 CAP PO QID for 7 Days, #28 CAP 0 Refills Prov: COLE MAYER MD 06/14/24 Referrals: MARIA ISABEL FERNANDEZ MD (PCP) I have reviewed, & agreed with my scribe's, documentation. (Entered by Saul Mccartney, acting as a scribe for Dr. Mayer) I personally scribed for COLE MAYER MD ([email or web address]) on 06/14/24 at 14:56. Electronically submitted by Saul Mccartney ([email or web address]). COLE MAYER MD Jun 14, 2024 14:56
--- NOTE | 2024-06-14 15:56 | HMCIMG ---
TIBIA/FIBULA 2VWS RT HISTORY: Injury COMPARISON: None TECHNIQUE: 2 images of right tibia and fibula were obtained. FINDINGS: There is no acute displaced fracture or dislocation. Degenerative changes are seen. IMPRESSION: 1. Findings as described above.
[2024-06-14] MEDS ORDERED: CLIN-141 PO (16:02)
[2024-06-14 16:31] VITALS: BP 110/64; PULSE 78; RESP 18; TEMP 98.5; O2SAT 98
== END 2024-06-14 16:32 | disposition home or self-care (01) ==
LOC: EDH 14:25
DX: S80.11XA Contusion of right lower leg, initial encounter (principal); E78.00 Pure hypercholesterolemia, unspecified; I51.9 Heart disease, unspecified; Z79.01 Long term (current) use of anticoagulants; Z79.82 Long term (current) use of aspirin; Z79.899 Other long term (current) drug therapy; Z88.6 Allergy status to analgesic agent; Z95.5 Presence of coronary angioplasty implant and graft; W18.39XA Other fall on same level, initial encounter; Y93.89 Activity, other specified; Y92.89 Other specified places as the place of occurrence of the external cause; Y99.8 Other external cause status
CPT/HCPCS: 73590; 99283

== ENCOUNTER → 2024-06-25 | Outpatient (CLI) | payer OTHER ==
[~2024-06-25] MED LIST changes: +CLIN-141 PO
--- NOTE | 2024-06-25 15:20 | HMCIMG ---
US VENOUS DOPPLER UNILATERAL HISTORY: Right lower extremity edema COMPARISON: None TECHNIQUE: Right lower extremity venous Doppler ultrasound study was performed. FINDINGS: The right common femoral, femoral, popliteal, and posterior tibial veins are visualized. Normal flow with augmentation and compressibilities are demonstrated. Right greater saphenous vein is patent. Complex structure is seen in the right calf/right kidney area measuring 6.7 x 1.3 x 4 cm may be related to small hematoma. IMPRESSION: 1. No evidence of deep venous thrombosis is seen. Complex structure is seen in the right calf/right kidney area measuring 6.7 x 1.3 x 4 cm may be related to small hematoma.
--- NOTE | 2024-06-25 15:21 | HMCIMG ---
US ARTERIAL UNILA LOW EXT DUPL HISTORY: Pain COMPARISON: None TECHNIQUE: Right lower extremity arterial Doppler ultrasound study was performed. FINDINGS: Normal triphasic arterial waveforms are noted in the common femoral, deep femoral, superficial femoral, popliteal, posterior tibial and dorsalis pedal arteries. On the right, the peak systolic velocity of the common femoral artery is 124 cm/s, the proximal femoral artery is 88 cm/s, the mid femoral artery is 74 cm/s, the distal femoral artery is 93 cm/s, the proximal popliteal artery is 72 cm/s, the distal popliteal artery is 83 cm/s, the anterior tibial artery is 82 cm/s, the posterior tibial artery artery is 95 cm/s,and the dorsalis pedal artery is 81 cm/s. Complex structure is seen in the right calf/right kidney area measuring 6.7 x 1.3 x 4 cm may be related to small hematoma. IMPRESSION: 1. Atherosclerotic disease. 2. Otherwise normal triphasic arterial waveforms noted of the lower extremity artery system. Complex structure is seen in the right calf/right kidney area measuring 6.7 x 1.3 x 4 cm may be related to hematoma. Clinical correlation is recommended.
== END | disposition home or self-care (01) ==
LOC: RAH 13:47
PROVIDERS: ATTEND Internal Medicine
DX: I70.201 Unspecified atherosclerosis of native arteries of extremities, right leg (principal); R60.0 Localized edema
CPT/HCPCS: 93926; 93971

== ENCOUNTER → 2025-06-16 | Outpatient (CLI) | payer OTHER ==
[~2025-06-16] MED LIST changes: -AEC81 PO; +CAND4TAB11 PO; -CAND8TAB14 PO; -CLIN-141 PO; -FAMO20TA8 PO; -FERR-72 PO; -FURO40TA5 PO; -ICOS1CAP PO; -ONDA-104 PO; +PANT40TA54 PO; -RIVA20TA PO; -ROSU10TA72 PO; +ROSU10TA98 PO; -TAMS-1 PO; +TAMS-55 PO; +WARF4TAB72 PO
--- NOTE | 2025-06-17 05:48 | HMCIMG ---
EXAM: CR Right Tibia and Fibula, 3 views. CLINICAL HISTORY: Pain. COMPARISON: None provided. FINDINGS: No acute fracture or aggressive appearing osseous lesion. Joint spaces are within normal limits. The soft tissues are unremarkable. IMPRESSION: 1. No acute osseous abnormality. /Logan
== END | disposition home or self-care (01) ==
LOC: RAH 15:37
PROVIDERS: ATTEND Internal Medicine
DX: R22.41 Localized swelling, mass and lump, right lower limb (principal)
CPT/HCPCS: 73590